=== PATIENT | female | born 1990 | race Two or more races ===

== ENCOUNTER 2021-03-17 05:58 | Emergency (ER) | payer SELFPAY ==
[2021-03-17] MEDS ORDERED: Albuterol/Ipratropium 3.0-0.5 MG/3 ML Neb Soln NEB ONE (06:40)
[2021-03-17] MEDS ORDERED: predniSONE 20 MG Tab PO ONE (06:40)
--- NOTE | 2021-03-17 06:42 | EDM.PDOC ---
<Damon Caal - Last Filed: 03/17/21 06:53> ED HPI GENERAL MEDICAL PROBLEM - General Chief Complaint: Respiratory Problem Stated Complaint: SEVERE COUGH Time Seen by Provider: 03/17/21 06:27 Source of Information: Reports: Patient History Limitations: Reports: No Limitations - History of Present Illness INITIAL COMMENTS - FREE TEXT/NARRATIVE: 30-year-old female with no past medical history presents with worsening dry cough since Thursday. She was tested negative for influenza and Covid on Thursday and was prescribed Z-Jacinto and Tessalon Perles on . She denies fever, chills, vomiting, diarrhea but admits to sweats. ROS: A 10-point review of systems, other than pertinent positives and negatives as stated per HPI, is otherwise negative Past medical history: No additional pertinent history Past Surgical history: No additional pertinent history Social history: No additional pertinent history Family history: No additional pertinent history PHYSICAL EXAM General: AOx4, GCS = 15, No distress HEENT: dry mucous membrane Neck: supple, no meningismus, no Kernig or Brudzinski Cardiac: S1S2 RRR Respiratory: CTAB, no crackles or rales, no wheezing Abdomen: Soft, nontender, no rebound or guarding, nondistended, no pulsatile mass. Back: nontender Musculoskeletal: NVI distally, no deformity Neuro: No focal deficits, CN 2 - 12 WNL. - Related Data Allergies Allergy/AdvReac Type Severity Reaction Status Date / Time No Known Allergies Allergy Verified 03/17/21 06:10 Home Meds: Home Meds Acetaminophen with Codeine [Acetaminophen-Cod #2] 1 each PO Q4HR PRN #12 tablet 03/17/21 [Rx] Amphetamine/Dextroamphetamine [Adderall] 1 dose PO ASDIRECTED 03/17/21 [History] buPROPion [Wellbutrin] 1 dose PO ASDIRECTED 03/17/21 [History] Past Medical History - Past Health History Medical/Surgical History: Denies Medical/Surgical History Social & Family History - Family History Family Medical History: No Pertinent Family History - Tobacco Use Tobacco Use Status *Q: Never Tobacco User - Caffeine Use Caffeine Use: Reports: Coffee, Energy Drinks, Soda, Tea - Recreational Drug Use Recreational Drug Use: No ED ROS GENERAL - Review of Systems Review Of Systems: See Below (see dictation) ED EXAM, GENERAL - Physical Exam Exam: See Below (see dictation) Course - Re-Assessments/Exams Free Text/Narrative Re-Assessment/Exam: 03/17/21 06:59 Patient signed out to Dr. Momin Departure - Departure Disposition: Admitted As Inpatient 64 Clinical Impression: URI (upper respiratory infection) - Discharge Information Prescriptions: Acetaminophen with Codeine [Acetaminophen-Cod #2] 1 each PO Q4HR PRN #12 tablet PRN Reason: Cough Instructions: Upper Respiratory Infection, Adult, [id number] Referrals: Elijah Steen MD [Primary Care Provider] - Forms: ED Department Discharge Sepsis Event Note (ED) - Evaluation Sepsis Screening Result: No Definite Risk <Suresh Momin - Last Filed: 03/17/21 07:44> Course - Vital Signs Text/Narrative:: Patient presents with cough. Lungs are clear. No respiratory distress. Chest x-ray and Covid negative. Tylenol with codeine for cough with return precautions and PCP follow-up. Last Recorded V/S: Last Vital Signs Temp 35.7 C L 03/17/21 06:12 Pulse 84 03/17/21 07:30 Resp 18 03/17/21 06:12 BP 134/86 03/17/21 07:30 Pulse Ox 96 03/17/21 07:30 - Orders/Labs/Meds Orders: Active Orders 24 hr Category Date Time Status RT Aerosol Therapy [RC] ASDIRECTED Care 03/17/21 06:40 Active Labs: Laboratory Tests 03/17/21 03/17/21 Range/Units 06:08 06:25 Urine HCG, Qual NEGATIVE (NEGATIVE) Influenza Type A RNA NEGATIVE (NEGATIVE) Influenza Type B RNA NEGATIVE (NEGATIVE) SARS-CoV-2 RNA ([facility]) NEGATIVE (NEGATIVE) Meds: Medications Discontinued Medications Generic Name Dose Route Start Last Admin Trade Name Freq PRN Reason Stop Dose Admin Albuterol/Ipratropium 3 ml 03/17/21 06:40 03/17/21 06:48 Albuterol/Ipratropium 3.0-0.5 Mg/3 Ml Neb Soln NEB 03/17/21 06:41 3 ml ONETIME ONE Administration Prednisone 60 mg 03/17/21 06:40 03/17/21 06:47 Prednisone 20 Mg Tab PO 03/17/21 06:41 60 mg ONETIME ONE Administration Departure - Departure Time of Disposition: 07:44 Condition: Good Sepsis Event Note (ED) - Focused Exam Vital Signs: Vital Signs Temp Pulse Resp BP Pulse Ox 03/17/21 07:30 84 134/86 96 03/17/21 06:12 35.7 C L 104 H 18 140/98 H 100
[2021-03-17 06:57] LABS: CORONAVIRUS COVID-19 NAA NEGATIVE (NEGATIVE); INFLUENZA A NAA NEGATIVE (NEGATIVE); INFLUENZA B NAA NEGATIVE (NEGATIVE)
--- NOTE | 2021-03-17 07:15 | CR ---
INDICATION: Cough. TECHNIQUE: Portable AP image of the chest. COMPARISON: None. FINDINGS: Lungs and pleural spaces clear. Heart, mediastinum and pulmonary vessels normal. No significant osseous abnormality. IMPRESSION: Negative chest. Dictated by Vimal Hawk MD @ 03/17/2021 7:14:46 AM (Electronically Signed)
== END 2021-03-17 07:52 | disposition home or self-care (01) ==
LOC: MW.ED 05:58
DX: J06.9 Acute upper respiratory infection, unspecified (principal); Z20.822 Contact with and (suspected) exposure to COVID-19
CPT/HCPCS: 0240U; 71045; 81025; 99284; A9270; J7620-GY

== ENCOUNTER 2021-04-17 11:10 | Emergency (ER) | payer SELFPAY ==
[2021-04-17 11:57] LABS: CORONAVIRUS COVID-19 NAA NEGATIVE (NEGATIVE); INFLUENZA A NAA POSITIVE (NEGATIVE); INFLUENZA B NAA NEGATIVE (NEGATIVE)
== END 2021-04-17 12:33 | disposition home or self-care (01) ==
LOC: MW.ED 11:10
DX: J10.1 Influenza due to other identified influenza virus with other respiratory manifestations (principal); Z79.899 Other long term (current) drug therapy; Z20.822 Contact with and (suspected) exposure to COVID-19
CPT/HCPCS: 0240U; 71045; 99284

== ENCOUNTER 2021-05-11 00:28 | Emergency (ER) | payer SELFPAY ==
[2021-05-11] MEDS ORDERED: Ketorolac 30 MG/ML SDV IM ONE (00:47)
[2021-05-11] MEDS ORDERED: guaiFENesin/Dextromethorphan 100-10 MG/5 ML Soln 10 ML Cup PO STA (00:47)
[2021-05-11 01:34] LABS: BLOOD UREA NITROGEN,BUN 15 mg/dL (7.0-18.0); CARBON DIOXIDE,CO2 28.4 mmol/L (21.0-32.0); CHLORIDE,CL 103 mmol/L (98-107); GLUCOSE RANDOM 104 mg/dL (74-106); POTASSIUM,K 3.9 mmol/L (3.5-5.1); SODIUM,NA 142 mmol/L (136-145)
[2021-05-11] MEDS ORDERED: Iopamidol 755 MG/ML 500 ML Multipack Bottle IVPUSH ONE (01:42)
== END 2021-05-11 03:04 | disposition home or self-care (01) ==
LOC: MW.ED 00:28
DX: M94.0 Chondrocostal junction syndrome [Tietze] (principal); E66.9 Obesity, unspecified; Z68.35 Body mass index [BMI] 35.0-35.9, adult; Z86.16 Personal history of COVID-19
CPT/HCPCS: 36415; 71275; 80048; 84703; 93005; 96372; 99284; A9270; J1885; Q9967

== ENCOUNTER 2022-02-08 18:43 | Emergency (ER) | payer BC | END 2022-02-08 21:46 | disposition home or self-care (01) | LOC: MW.ED 18:43 | DX: O98.512 Other viral diseases complicating pregnancy, second trimester (principal); U07.1 COVID-19; O99.212 Obesity complicating pregnancy, second trimester; E66.9 Obesity, unspecified; Z79.899 Other long term (current) drug therapy; Z3A.15 15 weeks gestation of pregnancy | CPT/HCPCS: 99281 ==

== ENCOUNTER 2022-07-31 00:20 | Inpatient (IN) | payer BC ==
[2022-07-31] MEDS ORDERED: Carboprost Tromethamine 250 MCG/1 ML Amp IM PRN (00:56)
[2022-07-31] MEDS ORDERED: Ondansetron 4 MG/2 ML SDV IVPUSH PRN (00:56)
[2022-07-31] MEDS ORDERED: Misoprostol 200 MCG Tab PO PRN (00:56)
[2022-07-31] MEDS ORDERED: Terbutaline 1 MG/ML SDV SUBCUT PRN (00:56)
[2022-07-31] MEDS ORDERED: Sodium Chloride 0.9% 20 ML SDV IV PRN (00:56)
[2022-07-31] MEDS ORDERED: Nalbuphine HCl 10 MG/ 1ML Amp IVPUSH ONE ×2 (00:56→09:30)
[2022-07-31] MEDS ORDERED: Sodium Chloride 0.9% 10 ML Syringe FLUSH PRN (00:56)
[2022-07-31] MEDS ORDERED: Sodium Chloride 0.9% 2.5 ML Syringe FLUSH PRN (00:56)
[2022-07-31] MEDS ORDERED: Water For Irrigation,Sterile 1,000 ML Container IRR PRN (00:56)
[2022-07-31] MEDS ORDERED: Tranexamic Acid 1,000 MG in Sodium Chloride 0.9% 100 ML IV PRN (00:56)
[2022-07-31] MEDS ORDERED: Lidocaine 1% 50 ML MDV INJECT PRN (00:56)
[2022-07-31] MEDS ORDERED: Methylergonovine 0.2 MG/1 ML Amp IM PRN (00:56)
[2022-07-31] MEDS ORDERED: Oxytocin/0.9 % Sodium Chloride 30 UNIT/500 ML BAG IV SCH ×2 (01:00)
[2022-07-31] MEDS: Misoprostol 25 MCG (1/4 of 100 MCG) Tab VAG PRN ×2 (01:52→07:41)
[2022-07-31] MEDS: Misoprostol 25 MCG (1/4 of 100 MCG) Tab PO PRN ×2 (01:53→07:41)
[2022-07-31] MEDS ORDERED: Nalbuphine HCl 10 MG/ 1ML Amp IM PRN (02:24)
[2022-07-31] MEDS ORDERED: Misoprostol 25 MCG (1/4 of 100 MCG) Tab VAG PRN (05:30)
[2022-07-31] MEDS ORDERED: Misoprostol 25 MCG (1/4 of 100 MCG) Tab PO PRN (05:30)
[2022-07-31] MEDS ORDERED: Nalbuphine HCl 10 MG/ 1ML Amp IV PRN (12:16)
[2022-07-31] MEDS: Lactated Ringers 1,000 ML IV SCH ×2 (12:26→13:40)
[2022-07-31] MEDS ORDERED: Bupivacaine 0.5% 10 ML SDV ONE (13:08)
[2022-07-31] MEDS ORDERED: Ropivacaine/PF 400 MG/200 ML PCA ONE (13:08)
[2022-07-31] MEDS ORDERED: ePHEDrine 50 MG/ML SDV IVPUSH PRN ×2 (13:42)
[2022-07-31] MEDS ORDERED: Phenylephrine HCl 0.5 MG/5 ML AMP IVPUSH PRN (13:42)
[2022-07-31] MEDS ORDERED: Ropivacaine HCl/PF 400 MG in Premix Bag 1 BAG EPIDUR SCH (13:45)
[2022-07-31] MEDS ORDERED: Benzocaine/Menthol 20%-0.5% Spray 78 GM Cannister TOP PRN (17:39)
[2022-07-31] MEDS ORDERED: Acetaminophen 500 MG Tab PO PRN (17:39)
[2022-07-31] MEDS ORDERED: Bisacodyl 10 MG Supp RECTAL PRN (17:39)
[2022-07-31] MEDS ORDERED: oxyCODONE 5 MG Tab PO PRN (17:39)
[2022-07-31] MEDS ORDERED: Lanolin 100% Cream 7 GM Tube TOP PRN (17:39)
[2022-07-31] MEDS ORDERED: Ibuprofen 400 MG Tab PO PRN (17:39)
[2022-07-31] MEDS: Witch Hazel Medicated Pads 40/Jar TOP PRN (18:06)
[2022-07-31] MEDS: Docusate Sodium 100 MG Cap PO PRN (18:06)
[2022-07-31] MEDS: Acetaminophen 500 MG Tab PO PRN (18:07)
[2022-07-31] MEDS: Ibuprofen 800 MG Tab PO PRN (18:07)
[2022-08-01] MEDS: Ibuprofen 800 MG Tab PO PRN ×3 (00:35→18:27)
[2022-08-01] MEDS: Acetaminophen 500 MG Tab PO PRN ×3 (00:36→18:28)
[2022-08-01] MEDS: Docusate Sodium 100 MG Cap PO PRN ×2 (06:17→18:27)
[2022-08-01] MEDS: Witch Hazel Medicated Pads 40/Jar TOP PRN (16:51)
[2022-08-02] MEDS: Acetaminophen 500 MG Tab PO PRN ×2 (01:28→08:04)
[2022-08-02] MEDS: Ibuprofen 800 MG Tab PO PRN ×2 (01:28→08:03)
[2022-08-02] MEDS: Docusate Sodium 100 MG Cap PO PRN (09:24)
== END 2022-08-02 14:05 | disposition home or self-care (01) | DRG 560 ==
LOC: MW.OBCHECK 00:20 → MW.OB 00:21 → MW.OBCHECK 00:57 → OBSVTOIN 17:21 → MW.OB 22:00
PROVIDERS: ADMIT Obstetrics & Gynecology; ATTEND Obstetrics & Gynecology
PROC: 10E0XZZ Delivery of Products of Conception, External Approach (ICD-10-PCS; principal; 2022-07-31)
PROC: 3E0P7VZ Introduction of Hormone into Female Reproductive, Via Natural or Artificial Opening (ICD-10-PCS; 2022-07-31)
PROC: 10907ZC Drainage of Amniotic Fluid, Therapeutic from Products of Conception, Via Natural or Artificial Opening (ICD-10-PCS; 2022-07-31)
PROC: 3E033VJ Introduction of Other Hormone into Peripheral Vein, Percutaneous Approach (ICD-10-PCS; 2022-07-31)
DX: O99.214 Obesity complicating childbirth (principal); Z37.0 Single live birth; Z3A.39 39 weeks gestation of pregnancy
CPT/HCPCS: 01967; 36415; 59025; 59409; 59414; 85014; 85018; 85027; 86592; 86850; 86900; 86901; A9270-GY; J2300; J2405; J2590; J2795; J3490; J7120

== ENCOUNTER 2022-08-07 18:45 | Observation (INO) | payer BC ==
[2022-08-07] MEDS ORDERED: Sodium Chloride 0.9% 2.5 ML Syringe FLUSH PRN (20:15)
[2022-08-07] MEDS ORDERED: Sodium Chloride 0.9% 10 ML Syringe FLUSH PRN (20:15)
[2022-08-07] MEDS ORDERED: diphenhydrAMINE 50 MG/ML SDV IVPUSH STA (20:16)
[2022-08-07 20:22] LABS: BASOPHILS PERCENT AUTO 0.1 % (0.0-1.5); EOSINOPHILS ABSOLUTE AUTO 0.2 K/uL (0.0-0.7); EOSINOPHILS PERCENT AUTO 2.2 % (0.0-7.0); HEMATOCRIT 26.8 % (36.0-46.0); HEMOGLOBIN 8.5 g/dL (12.0-16.0); LYMPHOCYTES ABSOLUTE AUTO 2.4 K/uL (0.6-2.4); LYMPHOCYTES PERCENT AUTO 32.3 % (16.0-40.0); MEAN CORPUSCULAR HEMOGLOBIN 26.4 pg (27.0-32.0); MEAN CORPUSCULAR HGB CONC 31.7 g/dL (31.0-37.0); MEAN CORPUSCULAR VOLUME 83.2 fL (80.0-98.0); MONOCYTES ABSOLUTE AUTO 0.4 K/uL (0.0-0.8); MONOCYTES PERCENT AUTO 4.9 % (0.0-15.0); NEUTROPHILS ABSOLUTE AUTO 4.5 K/uL (1.4-5.7); NEUTROPHILS PERCENT AUTO 60.5 % (48.0-80.0); NRBC ABSOLUTE 0 K/uL; PLATELET COUNT,PLT 284 K/uL (150-400); RED BLOOD CELL COUNT 3.22 M/uL (4.30-5.90); WHITE BLOOD CELL COUNT,WBC 7.39 K/uL (4.0-11.0)
[2022-08-07 20:23] LABS: APPEARANCE,URINE SLT CLOUDY; BILIRUBIN,URINE NEGATIVE (NEGATIVE); COLOR,URINE DARK YELLOW; GLUCOSE,URINE NEGATIVE (NEGATIVE); KETONES,URINE NEGATIVE (NEGATIVE); LEUKOCYTE ESTERASE,URINE MODERATE (NEGATIVE); NITRITE,URINE NEGATIVE (NEGATIVE); OCCULT BLOOD,URINE LARGE (NEGATIVE); PROTEIN,URINE 100 mg/dL (NEGATIVE); UROBILINOGEN,URINE 0.2 EU/dL (<2.0)
[2022-08-07] MEDS ORDERED: Sodium Chloride 0.9% 1,000 ML IV STA (20:24)
[2022-08-07 20:38] LABS: BACTERIA,URINE FEW (NEGATIVE); EPITHELIAL CELLS,URINE OCCASIONAL (NONE-FEW); MUCUS,URINE OCCASIONAL (NONE-MOD); WBC,URINE 13-15 (0-5/HPF)
[2022-08-07 20:41] LABS: A/G RATIO 0.7 (0.9-1.6); ALBUMIN 2.6 g/dL (3.4-5.0); BILIRUBIN TOTAL 0.2 mg/dL (0.2-1.0); CALCIUM 8.4 mg/dL (8.5-10.1); CARBON DIOXIDE,CO2 24.1 mmol/L (21.0-32.0); CREATININE 0.7 mg/dL (0.6-1.0); EST CRCL DRUG DOSING (CG) 85.45 mL/min; PROTEIN TOTAL,TP 6.6 g/dL (6.4-8.2)
[2022-08-07] MEDS ORDERED: Labetalol 100 MG/20 ML MDV IVPUSH STA (20:45)
[2022-08-07] MEDS ORDERED: Magnesium Sulfate/Water 2 GM in Premix Bag 1 BAG IV STA (20:45)
[2022-08-07] MEDS ORDERED: Morphine 4 MG/ML Syringe IVPUSH STA (20:45)
[2022-08-07 21:14] LABS: CREATININE,URINE RAND 91.3 mg/dL; PROTEIN CREATININE RATIO,URINE 1.6; PROTEIN,URINE RANDOM 145.9 mg/dL (<11.9)
[2022-08-07] MEDS ORDERED: Labetalol 100 MG Tab PO ONE (23:19)
[2022-08-07] MEDS ORDERED: Acetaminophen/oxyCODONE 325-5 MG Tab PO PRN (23:22)
[2022-08-07] MEDS: Acetaminophen/oxyCODONE 325-5 MG Tab PO PRN (23:41)
[2022-08-08] MEDS: Acetaminophen/oxyCODONE 325-5 MG Tab PO PRN ×2 (06:38→10:40)
[2022-08-08] MEDS ORDERED: Labetalol 100 MG Tab PO ONE (12:47)
[2022-08-08] MEDS ORDERED: Acetaminophen/Butalbital/Caffeine 325-50-40 MG Tab PO PRN (13:00)
[2022-08-08 18:23] LABS: APPEARANCE,URINE CLEAR; BILIRUBIN,URINE NEGATIVE (NEGATIVE); COLOR,URINE YELLOW; GLUCOSE,URINE NEGATIVE (NEGATIVE); HEMATOCRIT 27.5 % (36.0-46.0); HEMOGLOBIN 8.5 g/dL (12.0-16.0); KETONES,URINE NEGATIVE (NEGATIVE); LEUKOCYTE ESTERASE,URINE TRACE (NEGATIVE); MEAN CORPUSCULAR HEMOGLOBIN 26.2 pg (27.0-32.0); MEAN CORPUSCULAR HGB CONC 30.9 g/dL (31.0-37.0); MEAN CORPUSCULAR VOLUME 84.6 fL (80.0-98.0); MEAN PLATELET VOLUME 10.1 fL (7.40-12.00); NITRITE,URINE NEGATIVE (NEGATIVE); OCCULT BLOOD,URINE LARGE (NEGATIVE); PH,URINE 5.5 (5.0-8.0); PROTEIN,URINE NEGATIVE (NEGATIVE); RED BLOOD CELL COUNT 3.25 M/uL (4.30-5.90); UROBILINOGEN,URINE 0.2 EU/dL (<2.0); WHITE BLOOD CELL COUNT,WBC 7.21 K/uL (4.0-11.0)
[2022-08-08 18:41] LABS: A/G RATIO 0.7 (0.9-1.6); ALBUMIN 2.6 g/dL (3.4-5.0); BILIRUBIN TOTAL 0.2 mg/dL (0.2-1.0); CALCIUM 8.1 mg/dL (8.5-10.1); CARBON DIOXIDE,CO2 25.2 mmol/L (21.0-32.0); CREATININE 0.9 mg/dL (0.6-1.0); EST CRCL DRUG DOSING (CG) 66.46 mL/min; POTASSIUM,K 3.9 mmol/L (3.5-5.1); PROTEIN TOTAL,TP 6.4 g/dL (6.4-8.2)
[2022-08-08 18:43] LABS: CREATININE,URINE RAND 25.5 mg/dL; PROTEIN CREATININE RATIO,URINE 0.7; PROTEIN,URINE RANDOM 16.7 mg/dL (<11.9)
[2022-08-08] MEDS ORDERED: Labetalol 100 MG Tab PO SCH (21:00)
== END 2022-08-08 20:10 | disposition home or self-care (01) ==
LOC: MW.ED 18:45 → MW.OB 22:01
PROVIDERS: ADMIT Obstetrics & Gynecology; ATTEND Obstetrics & Gynecology
DX: O16.5 Unspecified maternal hypertension, complicating the puerperium (principal); O90.89 Other complications of the puerperium, not elsewhere classified; R51.9 Headache, unspecified; O12.05 Gestational edema, complicating the puerperium; O14.15 Severe pre-eclampsia, complicating the puerperium; O99.345 Other mental disorders complicating the puerperium; F90.9 Attention-deficit hyperactivity disorder, unspecified type; F32.A Depression, unspecified; E66.9 Obesity, unspecified; Z79.899 Other long term (current) drug therapy
CPT/HCPCS: 36415; 80053; 81001; 81003; 82570; 83735; 84156; 85025; 85027; 87086; 93005; 96361; 96365; 96375; 99285; A9270; G0378; J1200; J2270; J3475; J3490; J7030; 93010; 99284

== ENCOUNTER 2023-04-24 13:57 | Emergency (ER) | payer SELFPAY ==
[2023-04-24] MEDS ORDERED: Sodium Chloride 0.9% 1,000 ML IV ONE (14:10)
[2023-04-24] MEDS ORDERED: Ondansetron 4 MG/2 ML SDV IVPUSH ONE (14:11)
[2023-04-24 14:32] LABS: APPEARANCE,URINE HAZY; BILIRUBIN,URINE SMALL (NEGATIVE); COLOR,URINE YELLOW; GLUCOSE,URINE NEGATIVE (NEGATIVE); KETONES,URINE NEGATIVE (NEGATIVE); LEUKOCYTE ESTERASE,URINE NEGATIVE (NEGATIVE); NITRITE,URINE NEGATIVE (NEGATIVE); OCCULT BLOOD,URINE SMALL (NEGATIVE); PROTEIN,URINE NEGATIVE (NEGATIVE)
[2023-04-24 14:39] LABS: BACTERIA,URINE FEW (NEGATIVE); HYALINE CASTS,URINE 0-1 (0-2/LPF); MUCUS,URINE MODERATE (NONE-MOD); SQUAMOUS EPITHELIAL CELLS,UR MANY; WBC,URINE 0-2 (0-5/HPF)
[2023-04-24 14:55] LABS: BASOPHILS ABSOLUTE AUTO 0.02 K/uL (0.00-0.20); BASOPHILS PERCENT AUTO 0.3 % (0.0-1.0); EOSINOPHILS ABSOLUTE AUTO 0.12 K/uL (0.00-0.45); EOSINOPHILS PERCENT AUTO 1.9 % (0.0-6.0); HEMATOCRIT 42.3 % (37.0-47.0); HEMOGLOBIN 13.7 g/dL (12.0-16.0); IMMATURE GRAN ABSOLUTE AUTO 0.01 K/uL (0.00-0.05); IMMATURE GRAN PERCENT AUTO 0.2 % (0.0-0.4); LYMPHOCYTES ABSOLUTE AUTO 1.27 K/uL (1.00-4.80); LYMPHOCYTES PERCENT AUTO 19.8 % (24.0-44.0); MEAN CORPUSCULAR HEMOGLOBIN 26.4 pg (28.0-32.0); MEAN CORPUSCULAR HGB CONC 32.4 g/dL (32.0-36.0); MEAN CORPUSCULAR VOLUME 81.5 fL (83.0-99.0); MEAN PLATELET VOLUME 10.6 fL (9.4-12.3); MONOCYTES ABSOLUTE AUTO 0.26 K/uL (0.00-0.80); MONOCYTES PERCENT AUTO 4.1 % (0.0-8.0); NEUTROPHILS ABSOLUTE AUTO 4.73 K/uL (1.80-7.70); NEUTROPHILS PERCENT AUTO 73.7 % (41.0-71.0); PLATELET COUNT,PLT 266 K/uL (150-400); RED BLOOD CELL COUNT 5.19 M/uL (4.10-5.30); WHITE BLOOD CELL COUNT,WBC 6.41 K/uL (3.9-11.3)
[2023-04-24 15:22] LABS: A/G RATIO 0.9 (0.9-1.6); ALBUMIN 4.1 g/dL (3.4-5.0); CALCIUM 9.4 mg/dL (8.5-10.1); CARBON DIOXIDE,CO2 26.3 mmol/L (21.0-32.0); CREATININE 0.9 mg/dL (0.6-1.0); EST CRCL DRUG DOSING (CG) 66.46 mL/min; POTASSIUM,K 3.5 mmol/L (3.5-5.1); PROTEIN TOTAL,TP 8.7 g/dL (6.4-8.2)
[2023-04-24 15:23] LABS: BILIRUBIN TOTAL 0.6 mg/dL (0.2-1.0)
== END 2023-04-24 16:37 | disposition home or self-care (01) ==
LOC: MW.ED 13:57
DX: K29.70 Gastritis, unspecified, without bleeding (principal); E66.9 Obesity, unspecified; Z68.35 Body mass index [BMI] 35.0-35.9, adult
CPT/HCPCS: 36415; 80053; 81001; 81025; 83690; 85025; 96361; 96374; 99284; J2405; J7030

== ENCOUNTER 2023-04-25 02:20 | Emergency (ER) | payer SELFPAY ==
[2023-04-25] MEDS ORDERED: Sodium Chloride 0.9% 2.5 ML Syringe FLUSH PRN (02:47)
[2023-04-25] MEDS ORDERED: Lactated Ringers 1,000 ML IV ONE (02:47)
[2023-04-25] MEDS ORDERED: Sodium Chloride 0.9% 10 ML Syringe FLUSH PRN (02:47)
[2023-04-25 03:31] LABS: CALCIUM 8.6 mg/dL (8.5-10.1); CARBON DIOXIDE,CO2 25.2 mmol/L (21.0-32.0); CREATININE 0.8 mg/dL (0.6-1.0); EST CRCL DRUG DOSING (CG) 74.77 mL/min; MAGNESIUM 1.8 mg/dL (1.8-2.4); POTASSIUM,K 4.2 mmol/L (3.5-5.1)
== END 2023-04-25 04:06 | disposition home or self-care (01) ==
LOC: MW.ED 02:20
DX: M79.10 Myalgia, unspecified site (principal); E66.9 Obesity, unspecified; Z68.35 Body mass index [BMI] 35.0-35.9, adult
CPT/HCPCS: 36415; 80048; 82550; 83735; 96360; 99284; J3490; J7120